=== PATIENT | female | born 1970 | race Caucasian/White ===

== ENCOUNTER 2018-05-05 11:36 | Emergency (ER) | payer OTHER, SELFPAY ==
[2018-05-05 11:52] VITALS: BP 168/69; PULSE 103; RESP 16; TEMP 37; O2SAT 99; BMI 18.6
--- NOTE | 2018-05-05 12:13 | ED.ABDPAIN ---
HPI - Abdominal Pain General Chief Complaint: Abdominal Pain Stated Complaint: states blood clot on hemmoroid Time Seen by Provider: 05/05/18 12:14 Source: patient Mode of arrival: ambulatory Limitations: no limitations History of Present Illness HPI narrative: this 48-year-old female comes in due to thrombosed hemorrhoid. She states that she has a long history of hemorrhoids, usually conservative measures such as steroid cream, fiber, and suppositories are effective. She has had this hemorrhoid for about 10 days and pain started to worsen yesterday. She took a picture with her phone and noticed a dark area. Saw her PCM and was told this was thrombosed. She states that topical nitroglycerin was prescribed but was not available for her to get until next week. She was scheduled an appointment with surgery apparently but not able to get in until Thursday. She states that her PCM told her to come here to have this excised because it needed to be done prior and [place] She states she has not been prescribed pain medicine, tried topical lidocaine but seemed to cause irritation. She has increasing discomfort with trying to sit or get comfortable. She states that this did bleed a little bit yesterday and was clearly coming from the hemorrhoid. She states that for 2 weeks or more she has had gurgling in her stomach and 1-3 soft to watery bowel movements early in the morning. She states the rest of the day this is not an issue in does not seem like her previous colitis. She states this was going on well before the hemorrhoid started but thinks it may be causing irritation. Related Data Home Medications Medication Instructions Recorded Confirmed acetaminophen 650 mg PO PRN PRN #0 04/09/16 cetirizine 10 mg PO QDAYP PRN #0 04/09/16 duloxetine [Cymbalta] 60 mg PO QDAY #0 04/09/16 methylcellulose (laxative) 500 mg PO QDAY #0 04/09/16 [Citrucel] valacyclovir 500 mg PO QDAY #0 04/09/16 Previous Rx's Medication Instructions Recorded hydroxyzine pamoate [Vistaril] 25 mg PO Q4HP PRN #60 cap 04/12/16 oxycodone 5 mg PO Q4HP PRN #90 tab 04/12/16 diazepam 2 mg PO Q3HP PRN #20 04/13/16 nitroglycerin 0.5 inch TRANSDERMAL BID #30 gram 05/05/18 oxycodone-acetaminophen 1 tab PO Q4-6H PRN #12 tab 05/05/18 Allergies Allergy/AdvReac Type Severity Reaction Status Date / Time bupropion [From WELLBUTRIN] Allergy Intermediate TACHYCARDIA, Unverified 09/09/17 11:52 CONFUSION AND 'UNCOMFORTABLE FEELINGS' Review of Systems Review of Systems All systems reviewed & are unremarkable except as noted in HPI and below PFSH Medical History Anxiety and depression (Chronic) Chronic pain (Chronic) Colitis (Chronic) Surgical History S/P cervical spinal fusion (Resolved) Social History Smoking Status: Current every day smoker Exam Narrative Exam Narrative: GENERAL APPEARANCE: Patient sitting comfortably, in no distress. HEENT: PERRL, EOMI, NECK: Supple LUNGS: Clear to auscultation bilaterally. HEART: Rate and rhythm regular, normal S1 and S2, no S3 or S4. ABDOMEN: Soft, nontender, nondistended, bowel sounds present x 4 quadrants, no masses palpable EXTREMITIES: No edema DERMATOLOGIC: No jaundice or exanthem NEUROLOGIC: Alert and oriented with normal speech and coordination RECTAL: on external exam there is a tender hemorrhoid with a central black macule, mildly edematous, approximately 6 mm in size. Surrounding skin is not erythematous. There is no active bleeding. There are several other small tags that are not inflamed Initial Vital Signs Initial Vital Signs: Vital Signs Temperature 98.6 F 05/05/18 11:52 Pulse Rate 103 H 05/05/18 11:52 Respiratory Rate 16 05/05/18 11:52 Blood Pressure 168/69 H 05/05/18 11:52 Pulse Oximetry 99 05/05/18 11:52 Course Orders Ordered: I explained to patient that I could attempt to excise the clot today, however more definitive treatment is excision the hemorrhoid and she already has an appointment with surgery. We are able to get topical nitroglycerin for her locally and she has taken Percocet in the past with good pain relief for her spinal issues. She elects to try conservative management and keep her appointment with surgery in 2 days. On reviewing the photo that she took yesterday, right actually looks smaller and less inflamed today. May have had some partial evacuation with the bleeding that occurred yesterday. Vital Signs - 8 hr 05/05/18 11:52 Temperature 98.6 F Pulse Rate 103 H Respiratory Rate 16 Blood Pressure 168/69 H Pulse Oximetry 99 Discharge Plan Departure Patient Disposition: Home Clinical Impression: External hemorrhoid, thrombosed Discharge Date/Time: 05/05/18 13:17 Instructions: DI for Hemorrhoids Activity Restrictions/Additional Instructions: you can try the nitroglycerin cream prescribed twice daily. Take pain pills as needed. Please be sure to get your bottom into a tub of warm/hot water as many times daily as possible. You can use the prescription oxycodone/acetaminophen as needed since it has helped to in the past, but remember it may make you sleepy and not to drive. The hemorrhoid you showed me has a small clot in it but it looks less inflamed than in the picture you showed me yesterday, and may have been partially evacuated from the bleeding. You can continue any of the other topical medicines you have if the skin is not open (it is not today). Please keep your appointment with the surgeon in 2 days to determine whether to excise this hemorrhoid (we do not do this in the Emergency Department but it is the preferred treatment as far as not having the hemorrhoid come back). Prescriptions: New oxycodone-acetaminophen 5-325 mg tablet 1 tab PO Q4-6H PRN (Reason: acute hemorrhoid pain) Qty: 12 RF: 0 nitroglycerin 2 % ointment 0.5 inch Transdermal BID Qty: 30 RF: 0 No Action acetaminophen 325 MG tablet 650 mg PO PRN PRNQty: 0 RF: 0 valacyclovir 500 MG tablet 500 mg PO QDAY Qty: 0 RF: 0 methylcellulose (laxative) [Citrucel] 500 MG tablet 500 mg PO QDAY Qty: 0 RF: 0 cetirizine 10 MG tablet 10 mg PO QDAYP PRNQty: 0 RF: 0 duloxetine [Cymbalta] 30 MG capsule,delayed release(DR/EC) 60 mg PO QDAY Qty: 0 RF: 0 oxycodone 5 MG tablet 5 mg PO Q4HP PRNQty: 90 RF: 0 hydroxyzine pamoate [Vistaril] 25 MG capsule 25 mg PO Q4HP PRNQty: 60 RF: 1 diazepam 2 MG tablet 2 mg PO Q3HP PRNQty: 20 RF: 0 Referrals: [facility] [Outside]
--- NOTE | 2018-05-05 12:43 | ED.ABDPAIN ---
HPI - Abdominal Pain <Mary Newman PA-C - Last Filed: 05/05/18 21:03> General Chief Complaint: Abdominal Pain Stated Complaint: states blood clot on hemmoroid Time Seen by Provider: 05/05/18 12:14 Source: patient Mode of arrival: ambulatory Limitations: no limitations History of Present Illness HPI narrative: this 48-year-old female with a long history of recurrent hemorrhoids states that she noted recurrent symptoms about 10 days ago. These have always improved with conservative measures such as Sitz baths, preparation H, fiber, suppositories, but yesterday she began to have more pain and noted a blackish purple area when she took a picture with her cell phone. She saw her PCM at the [facility] who told her this was thrombosed and she needed to have it excised or drained, but they were unable to do this at the [facility] and she was not able to be referred to surgery until Thursday. She was advised to come here to have this done today. She is uncomfortable with sitting or pressure on this area. She states that she was given topical lidocaine but seemed to cause irritation and did not help. She states the hemorrhoid was bleeding a little bit last night / yesterday, but not today. She was also given a prescription for topical nitroglycerin, but apparently this had to be special ordered for her so she was not able to start it. She denies any other new symptoms or concerns today other than pain from the hemorrhoid. She states that she has had 2 or more weeks of gurgling in her stomach after meals and will have 1-3 watery to soft bowel movements just in the morning, which she thinks has exacerbated the hemorrhoid as well as sitting for extended periods. She does have a history of colitis but states this is not like her colitis. No acute changes. She states that she has not seen any blood in the stools, just from the hemorrhoids. Related Data Home Medications Medication Instructions Recorded Confirmed acetaminophen 650 mg PO PRN PRN #0 04/09/16 cetirizine 10 mg PO QDAYP PRN #0 04/09/16 duloxetine [Cymbalta] 60 mg PO QDAY #0 04/09/16 methylcellulose (laxative) 500 mg PO QDAY #0 04/09/16 [Citrucel] valacyclovir 500 mg PO QDAY #0 04/09/16 Previous Rx's Medication Instructions Recorded hydroxyzine pamoate [Vistaril] 25 mg PO Q4HP PRN #60 cap 04/12/16 oxycodone 5 mg PO Q4HP PRN #90 tab 04/12/16 diazepam 2 mg PO Q3HP PRN #20 04/13/16 nitroglycerin 0.5 inch TRANSDERMAL BID #30 gram 05/05/18 oxycodone-acetaminophen 1 tab PO Q4-6H PRN #12 tab 05/05/18 Allergies Allergy/AdvReac Type Severity Reaction Status Date / Time bupropion [From WELLBUTRIN] Allergy Intermediate TACHYCARDIA, Unverified 09/09/17 11:52 CONFUSION AND 'UNCOMFORTABLE FEELINGS' Review of Systems <Mary Newman PA-C - Last Filed: 05/05/18 21:03> Review of Systems All systems reviewed & are unremarkable except as noted in HPI and below Exam <Mary Newman PA-C - Last Filed: 05/05/18 21:03> Narrative Exam Narrative: GENERAL APPEARANCE: Patient sitting comfortably, in no distress. HEENT: PERRL, EOMI, no scleral icterus NECK: Supple LUNGS: Clear to auscultation bilaterally. HEART: Rate and rhythm regular, normal S1 and S2, no S3 or S4. ABDOMEN: Soft, nontender, nondistended, bowel sounds present x 4 quadrants, no masses palpable EXTREMITIES: No edema, no calf tenderness DERMATOLOGIC: No jaundice or exanthem NEUROLOGIC: Alert and oriented with normal speech and coordination RECTAL: On external exam there is a left-sided external hemorrhoid about 7 mm in size. There is small black macule centrally. Tender to touch. The overlying tissue is not erythematous and there is no active drainage or bleeding. There are several other small tags as well which are nontender Initial Vital Signs Initial Vital Signs: Vital Signs Temperature 98.6 F 05/05/18 11:52 Pulse Rate 103 H 05/05/18 11:52 Respiratory Rate 16 05/05/18 11:52 Blood Pressure 168/69 H 05/05/18 11:52 Pulse Oximetry 99 05/05/18 11:52 <Vanessa Reed DO - Last Filed: 05/06/18 07:32> Initial Vital Signs Initial Vital Signs: Vital Signs Temperature 98.6 F 05/05/18 11:52 Pulse Rate 103 H 05/05/18 11:52 Respiratory Rate 16 05/05/18 11:52 Blood Pressure 168/69 H 05/05/18 11:52 Pulse Oximetry 99 05/05/18 11:52 Course <Mary Newman PA-C - Last Filed: 05/05/18 21:03> Additional Information: explained to patient that typically we do not incised these in the emergency department, and that more definitive treatment would be to have the hemorrhoid completely excised. I did offer this to her versus topical nitroglycerin, which are local pharmacy does have, along with pain medication since she already has a surgical consult scheduled on Thursday, and she elects the latter. Vital Signs - 8 hr 05/05/18 13:15 Pulse Rate 71 Respiratory Rate 15 Blood Pressure 128/46 L Pulse Oximetry 100 <Vanessa Reed DO - Last Filed: 05/06/18 07:32> Vital Signs - 8 hr 05/05/18 13:15 Pulse Rate 71 Respiratory Rate 15 Blood Pressure 128/46 L Pulse Oximetry 100 Discharge Plan Departure Patient Disposition: Home Clinical Impression: External hemorrhoid, thrombosed Discharge Date/Time: 05/05/18 13:17 Interventions: ED Discharge Assessment Last Done: 05/05/18 13:15 Instructions: DI for Hemorrhoids Activity Restrictions/Additional Instructions: you can try the nitroglycerin cream prescribed twice daily. Take pain pills as needed. Please be sure to get your bottom into a tub of warm/hot water as many times daily as possible. You can use the prescription oxycodone/acetaminophen as needed since it has helped to in the past, but remember it may make you sleepy and not to drive. The hemorrhoid you showed me has a small clot in it but it looks less inflamed than in the picture you showed me yesterday, and may have been partially evacuated from the bleeding. You can continue any of the other topical medicines you have if the skin is not open (it is not today). Please keep your appointment with the surgeon in 2 days to determine whether to excise this hemorrhoid (we do not do this in the Emergency Department but it is the preferred treatment as far as not having the hemorrhoid come back). Prescriptions: New oxycodone-acetaminophen 5-325 mg tablet 1 tab PO Q4-6H PRN (Reason: acute hemorrhoid pain) Qty: 12 RF: 0 nitroglycerin 2 % ointment 0.5 inch Transdermal BID Qty: 30 RF: 0 No Action acetaminophen 325 MG tablet 650 mg PO PRN PRNQty: 0 RF: 0 valacyclovir 500 MG tablet 500 mg PO QDAY Qty: 0 RF: 0 methylcellulose (laxative) [Citrucel] 500 MG tablet 500 mg PO QDAY Qty: 0 RF: 0 cetirizine 10 MG tablet 10 mg PO QDAYP PRNQty: 0 RF: 0 duloxetine [Cymbalta] 30 MG capsule,delayed release(DR/EC) 60 mg PO QDAY Qty: 0 RF: 0 oxycodone 5 MG tablet 5 mg PO Q4HP PRNQty: 90 RF: 0 hydroxyzine pamoate [Vistaril] 25 MG capsule 25 mg PO Q4HP PRNQty: 60 RF: 1 diazepam 2 MG tablet 2 mg PO Q3HP PRNQty: 20 RF: 0 Referrals: [facility] [Outside] <Vanessa Reed, - Last Filed: 05/06/18 07:32> Cosign ED Attending Jyotiature Attestation: I was immediately available in the department for consultation. Documentation has been reviewed. I agree with assessment and plan.
--- NOTE | 2018-05-05 12:49 | ED_ITS ---
HPI - Abdominal Pain <Mary Newman PA-C - Last Filed: 05/05/18 21:03> General Chief Complaint: Abdominal Pain Stated Complaint: states blood clot on hemmoroid Time Seen by Provider: 05/05/18 12:14 Source: patient Mode of arrival: ambulatory Limitations: no limitations History of Present Illness HPI narrative: this 48-year-old female with a long history of recurrent hemorrhoids states that she noted recurrent symptoms about 10 days ago. These have always improved with conservative measures such as Sitz baths, preparation H, fiber, suppositories, but yesterday she began to have more pain and noted a blackish purple area when she took a picture with her cell phone. She saw her PCM at the [facility] who told her this was thrombosed and she needed to have it excised or drained, but they were unable to do this at the [facility] and she was not able to be referred to surgery until Thursday. She was advised to come here to have this done today. She is uncomfortable with sitting or pressure on this area. She states that she was given topical lidocaine but seemed to cause irritation and did not help. She states the hemorrhoid was bleeding a little bit last night / yesterday, but not today. She was also given a prescription for topical nitroglycerin, but apparently this had to be special ordered for her so she was not able to start it. She denies any other new symptoms or concerns today other than pain from the hemorrhoid. She states that she has had 2 or more weeks of gurgling in her stomach after meals and will have 1-3 watery to soft bowel movements just in the morning, which she thinks has exacerbated the hemorrhoid as well as sitting for extended periods. She does have a history of colitis but states this is not like her colitis. No acute changes. She states that she has not seen any blood in the stools, just from the hemorrhoids. Related Data Home Medications Medication Instructions Recorded Confirmed acetaminophen 650 mg PO PRN PRN #0 04/09/16 cetirizine 10 mg PO QDAYP PRN #0 04/09/16 duloxetine [Cymbalta] 60 mg PO QDAY #0 04/09/16 methylcellulose (laxative) 500 mg PO QDAY #0 04/09/16 [Citrucel] valacyclovir 500 mg PO QDAY #0 04/09/16 Previous Rx's Medication Instructions Recorded hydroxyzine pamoate [Vistaril] 25 mg PO Q4HP PRN #60 cap 04/12/16 oxycodone 5 mg PO Q4HP PRN #90 tab 04/12/16 diazepam 2 mg PO Q3HP PRN #20 04/13/16 nitroglycerin 0.5 inch TRANSDERMAL BID #30 gram 05/05/18 oxycodone-acetaminophen 1 tab PO Q4-6H PRN #12 tab 05/05/18 Allergies Allergy/AdvReac Type Severity Reaction Status Date / Time bupropion [From WELLBUTRIN] Allergy Intermediate TACHYCARDIA, Unverified 11:52 CONFUSION AND 'UNCOMFORTABLE FEELINGS' Review of Systems <Mary Newman PA-C - Last Filed: 05/05/18 21:03> Review of Systems All systems reviewed & are unremarkable except as noted in HPI and below Exam <Mary Newman PA-C - Last Filed: 05/05/18 21:03> Narrative Exam Narrative: GENERAL APPEARANCE: Patient sitting comfortably, in no distress. HEENT: PERRL, EOMI, no scleral icterus NECK: Supple LUNGS: Clear to auscultation bilaterally. HEART: Rate and rhythm regular, normal S1 and S2, no S3 or S4. ABDOMEN: Soft, nontender, nondistended, bowel sounds present x 4 quadrants, no masses palpable EXTREMITIES: No edema, no calf tenderness DERMATOLOGIC: No jaundice or exanthem NEUROLOGIC: Alert and oriented with normal speech and coordination RECTAL: On external exam there is a left-sided external hemorrhoid about 7 mm in size. There is small black macule centrally. Tender to touch. The overlying tissue is not erythematous and there is no active drainage or bleeding. There are several other small tags as well which are nontender Initial Vital Signs Initial Vital Signs: Vital Signs Temperature 98.6 F 05/05/18 11:52 Pulse Rate 103 H 05/05/18 11:52 Respiratory Rate 16 05/05/18 11:52 Blood Pressure 168/69 H 05/05/18 11:52 Pulse Oximetry 99 05/05/18 11:52 <Vanessa Reed DO - Last Filed: 05/06/18 07:32> Initial Vital Signs Initial Vital Signs: Vital Signs Temperature 98.6 F 05/05/18 11:52 Pulse Rate 103 H 05/05/18 11:52 Respiratory Rate 16 05/05/18 11:52 Blood Pressure 168/69 H 05/05/18 11:52 Pulse Oximetry 99 05/05/18 11:52 Course <Mary Newman PA-C - Last Filed: 05/05/18 21:03> Additional Information: explained to patient that typically we do not incised these in the emergency department, and that more definitive treatment would be to have the hemorrhoid completely excised. I did offer this to her versus topical nitroglycerin, which are local pharmacy does have, along with pain medication since she already has a surgical consult scheduled on Thursday, and she elects the latter. Vital Signs - 8 hr 05/05/18 13:15 Pulse Rate 71 Respiratory Rate 15 Blood Pressure 128/46 L Pulse Oximetry 100 <Vanessa Reed DO - Last Filed: 05/06/18 07:32> Vital Signs - 8 hr 05/05/18 13:15 Pulse Rate 71 Respiratory Rate 15 Blood Pressure 128/46 L Pulse Oximetry 100 Discharge Plan Departure Patient Disposition: Home Clinical Impression: External hemorrhoid, thrombosed Discharge Date/Time: 05/05/18 13:17 Interventions: ED Discharge Assessment Last Done: 05/05/18 13:15 Instructions: DI for Hemorrhoids Activity Restrictions/Additional Instructions: you can try the nitroglycerin cream prescribed twice daily. Take pain pills as needed. Please be sure to get your bottom into a tub of warm/hot water as many times daily as possible. You can use the prescription oxycodone/ acetaminophen as needed since it has helped to in the past, but remember it may make you sleepy and not to drive. The hemorrhoid you showed me has a small clot in it but it looks less inflamed than in the picture you showed me yesterday, and may have been partially evacuated from the bleeding. You can continue any of the other topical medicines you have if the skin is not open ( it is not today). Please keep your appointment with the surgeon in 2 days to determine whether to excise this hemorrhoid (we do not do this in the Emergency Department but it is the preferred treatment as far as not having the hemorrhoid come back). Prescriptions: New oxycodone-acetaminophen 5-325 mg tablet 1 tab PO Q4-6H PRN (Reason: acute hemorrhoid pain) Qty: 12 RF: 0 nitroglycerin 2 % ointment 0.5 inch Transdermal BID Qty: 30 RF: 0 No Action acetaminophen 325 MG tablet 650 mg PO PRN PRNQty: 0 RF: 0 valacyclovir 500 MG tablet 500 mg PO QDAY Qty: 0 RF: 0 methylcellulose (laxative) [Citrucel] 500 MG tablet 500 mg PO QDAY Qty: 0 RF: 0 cetirizine 10 MG tablet 10 mg PO QDAYP PRNQty: 0 RF: 0 duloxetine [Cymbalta] 30 MG capsule,delayed release(DR/EC) 60 mg PO QDAY Qty: 0 RF: 0 oxycodone 5 MG tablet 5 mg PO Q4HP PRNQty: 90 RF: 0 hydroxyzine pamoate [Vistaril] 25 MG capsule 25 mg PO Q4HP PRNQty: 60 RF: 1 diazepam 2 MG tablet 2 mg PO Q3HP PRNQty: 20 RF: 0 Referrals: [facility] [Outside] <Vanessa Reed, - Last Filed: 05/06/18 07:32> Cosign ED Attending Jyotiature Attestation: I was immediately available in the department for consultation. Documentation has been reviewed. I agree with assessment and plan.
[2018-05-05 13:15] VITALS: BP 128/46; PULSE 71; RESP 15; O2SAT 100
== END 2018-05-05 13:17 | disposition home or self-care (01) ==
PROVIDERS: Emergency Provider Internal Medicine
DX: K64.5 Perianal venous thrombosis (principal)
CPT/HCPCS: 99282

== ENCOUNTER 2018-05-22 21:23 | Emergency (ER) | payer OTHER, SELFPAY ==
[2018-05-22 21:40] VITALS: BP 117/67; PULSE 76; RESP 18; TEMP 36.6; O2SAT 99; BMI 19.3
--- NOTE | 2018-05-22 22:15 | DI.CT.S_ITS ---
PROCEDURE: CT CERVICAL SPINE WO CON INDICATIONS: etoh head lac TECHNIQUE: Noncontrast 3 mm thick sections acquired from the skull base to the T4 level. Sagittal and coronal reformats were then constructed. For radiation dose reduction, the following was used: automated exposure control, adjustment of mA and/or kV according to patient size. COMPARISON: [facility], , C-SPINE WITHOUT CONTRAST, 03/04/2016, 7:09. [facility], CR, XR CERVICAL SPINE 2 OR 3 VIEWS, 05/13/2017, 9:54. [facility], CR, SPINE CERVICAL 2 OR 3VW, 03/26/2016, 11:24. FINDINGS: Image quality: Excellent. Bones: No fractures or dislocations. Discectomy and anterior fusion at C4-C7. Visualized superior ribs are intact. Soft tissues: Prevertebral soft tissues are normal in thickness. No paravertebral hematomas. No apical pneumothoraces. IMPRESSION: No fractures. Note is made of post surgical changes. No significant discrepancy with the showroom executive director radiology preliminary report. Dictated by: Mechelle Ulloa M.D. on 05/23/2018 at 7:28 Approved by: Mechelle Ulloa M.D. on 05/23/2018 at 7:30
--- NOTE | 2018-05-22 22:15 | DI.CT.S_ITS ---
PROCEDURE: CT HEAD/BRAIN WO CON INDICATIONS: etoh, head laceration left TECHNIQUE: Noncontrast 4.5 mm thick angled axial sections acquired from the foramen magnum to the vertex, with coronal and sagittal reformats. For radiation dose reduction, the following was used: automated exposure control, adjustment of mA and/or kV according to patient size. COMPARISON: None. FINDINGS: Image quality: Excellent. CSF spaces: Basal cisterns are patent. No extra-axial fluid collections. Ventricles are normal in size and shape. Brain: No midline shift. No intracranial masses or hemorrhage. Toscano-white matter interface is normal. Skull and face: Calvarium and visualized facial bones are intact, without suspicious lesions. Sinuses: Visualized sinuses and mastoids are clear. IMPRESSION: 1. No acute intracranial abnormalities. No significant discrepancy with the sales service representative radiology preliminary report. Dictated by: Mechelle Ulloa M.D. on 05/23/2018 at 7:27 Approved by: Mechelle Ulloa M.D. on 05/23/2018 at 7:28
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
--- NOTE | 2018-05-22 23:35 | PC.NURSE ---
Dr. Reed at bedside to suture.
[2018-05-22 23:50] VITALS: BP 132/76; PULSE 82; RESP 18; O2SAT 96
== END 2018-05-22 23:55 | disposition home or self-care (01) ==
PROVIDERS: Emergency Provider Emergency Medicine
DX: S01.81XA Laceration without foreign body of other part of head, initial encounter (principal); W26.9XXA Contact with unspecified sharp object(s), initial encounter; Y93.H2 Activity, gardening and landscaping
CPT/HCPCS: 12011; 70450; 72125; 99283; 99284

== ENCOUNTER → 2018-06-24 12:57 | Outpatient (CLI) | payer OTHER, SELFPAY ==
--- NOTE | 2018-06-24 | DI.MRI.S_ITS ---
PROCEDURE: MR LUMBAR SPINE WO CON INDICATIONS: PARESTHESIAS/NUMBNESS TECHNIQUE: Noncontrast sagittal T1 spin echo and T2 fast echo, sagittal STIR, axial T1 and T2 fast spin echo through the lumbar spine. In cases with scoliosis, additional coronal T2 fast spin echo may be performed. COMPARISON: [facility], , L-SPINE WITHOUT CONTRAST, 01/02/2016, 19:34. FINDINGS: Image quality: Excellent. Alignment and Curvature: There is normal bony alignment. Bone Marrow: Marrow is of normal overall signal. No acute vertebral body compression fractures. Spinal Cord: Conus medullaris terminates at the L1 level. Visualized cord demonstrates normal signal and size. Paraspinous Soft Tissues: No paravertebral masses. L1-L2: Normal appearance. L2-L3: Mild degenerative disc disease with mild disc height reduction and desiccation. No definite spinal or foraminal stenosis despite a slight posterior transverse disc bulge. L3-L4: A slight degree of degenerative disc height reduction and desiccation is present without spinal or foraminal stenosis. L4-L5: Slight degenerative disc height reduction and desiccation without spinal or foraminal stenosis on the right. There is a mild degree of foraminal stenosis on the left associated with asymmetric mild left facet osteoarthritis but no definite nerve root impingement is associated. L5-S1: Normal appearance. IMPRESSION: No disc bulge or herniation impinging on nerve roots is found. There is only a mild degree of degenerative disc height reduction and disc desiccation and a minimal degree of foraminal stenosis on the left at L4-5 associated with slightly asymmetric facet osteoarthritis are on the left than the right at that level. Dictated by: Quinten Hood M.D. on 06/24/2018 at 17:24 Approved by: Quinten Hood M.D. on 06/24/2018 at 17:34
== END ==
PROVIDERS: Visit Provider Psychiatry & Neurology Neurology
DX: R20.2 Paresthesia of skin (principal); M47.816 Spondylosis without myelopathy or radiculopathy, lumbar region
CPT/HCPCS: 72148

== ENCOUNTER → 2019-04-14 10:43 | Outpatient (CLI) | payer OTHER, SELFPAY | PROVIDERS: PCP Family Medicine; Visit Provider Nurse Practitioner Family | DX: R30.0 Dysuria (principal) | CPT/HCPCS: 87077; 87086; 87186 ==

== ENCOUNTER → 2019-04-26 10:25 | Outpatient (CLI) | payer OTHER, SELFPAY ==
--- NOTE | 2019-04-26 10:27 | DI.RAD.S_ITS ---
PROCEDURE: XR THORACIC SPINE 3V INDICATIONS: mid back pain TECHNIQUE: 3 views of the thoracic spine were acquired. COMPARISON: None. FINDINGS: Bones: Incidentally noted cervical spine fixation hardware. Multilevel degenerative endplate sclerosis and spurring. Diffuse facet arthropathy. Soft tissues: No paravertebral stripe thickening. IMPRESSION: Diffuse discogenic changes. No definite fracture although suboptimal evaluation due to spondylosis. If the patient's pain or other symptoms persist, consider further evaluation with MRI Dictated by: Pierce Najera M.D. on 04/26/2019 at 14:56 Approved by: Pierce Najera M.D. on 04/26/2019 at 14:58
== END ==
PROVIDERS: Family Provider Family Medicine; PCP Family Medicine; Visit Provider Nurse Practitioner Family
DX: M54.6 Pain in thoracic spine (principal); M47.814 Spondylosis without myelopathy or radiculopathy, thoracic region
CPT/HCPCS: 72072

== ENCOUNTER 2019-05-31 10:23 | Outpatient (CLI) | payer OTHER, SELFPAY ==
[2019-05-31] VITALS (9 sets, daily range): BP systolic 128–159; BP diastolic 69–89; PULSE 73–128; RESP 16–18; TEMP 36.6; O2SAT 98–100
--- NOTE | 2019-05-31 10:24 | DI.RAD.S_ITS ---
PROCEDURE: PAIN C/T INTERLAMINAR INJECT INDICATIONS: INTERVERTEBRAL DISC DISPLACEMENT FINDINGS: Fluoroscopic spot filming was performed to verify placement of spinal needles at the T4-5 level(s), as labeled on the films. Secondary to limited fluoroscopic images, exact placement cannot be confirmed by images provided, only by annotation. Appropriate location(s) of the needle tip(s) was confirmed by injection of iodinated contrast. IMPRESSION: Needle placement as above. Recommend correlation to real-time report. Dictated by: Madiha Moncada M.D. on 05/31/2019 at 17:02 Approved by: Madiha Moncada M.D. on 05/31/2019 at 17:04
[2019-05-31] MEDS: MIDAZOLAM 5 MG/5 ML VIAL IV (11:27)
[2019-05-31] MEDS: fentaNYL 100 MCG/2 ML INJ 50 MCG IV (11:27)
[2019-05-31] MEDS: IOPAMIDOL 15 ML VIAL 3 ML INJ (11:34)
[2019-05-31] MEDS: DEXAMETHASONE 10 MG/ML VIAL 20 MG INJ (11:34)
[2019-05-31] MEDS: LIDOCAINE 1% 20 ML 5 ML INJ (11:34)
--- NOTE | 2019-05-31 11:38 | PC.NURSE ---
ASSISTING PT OFF TABLE AND TRANSPORTING TO POST PROC AREA IN POST PROC AREA IN STABLE CONDITION. PASSING RN CARE OF PT OFF TO NEIDA Talbert RN.
--- NOTE | 2019-05-31 11:46 | PM.PROC.1 ---
Procedures Date/Time Date of procedure: 05/31/19 Time of procedure: 11:46 General Procedure description: Preop diagnosis: Thoracic stenosis with HNP Postprocedure diagnosis: Thoracic stenosis with HNP Physician: Shamir Parra D.O. Indications: Mayi is referred by Dr. Cadena for treatment of thoracic DDD/DJD with radiculopathy Description of procedure: Fluoroscopic guided, contrast controlled T4/5 translaminar epidural steroid injection with conscious sedation. Following review of allergy review potential side effects and complications, including, but not necessarily limited to, infection, allergic reaction, local tissue breakdown, temporary as well as permanent nerve injury, stroke, paralysis and possible , the patient indicated that they understood and agreed to proceed. An informed consent document was signed by the patient, witnessed by the nurse, and placed in the patient's chart. Additionally other treatment options including modalities, medications and physical therapy were reviewed with the patient. After review of previous anaesthesic history and IV conscious sedation the patient was deemed safe to proceed with todays procedure with IV conscious sedation as ASA class II designation. Safety time-out was performed to confirm patient ID, procedure to be performed and site of procedure. IV sedation was accomplished with a combination of 3mg of Versed and 50mcg of Fentanyl administered by the RN after DO order, titrated to patient comfort during the course of the procedure while the patient remained responsive to all verbal commands In the prone position, following sterile prep and drape of the thoracic region the T4/5 translaminar space was identified fluoroscopically. The skin was anesthetized via 25 gauge 20 mm sheath with 1% lidocaine solution. At this point a 20 gauge epidural needle was atraumatically introduced and advanced under fluoroscopic guidance into the region of the T4/5 translaminar space depth was confirmed on lateral view. Radiographic data, including multiple fluoroscopic views of the thoracic spine, reveals spinal needle at the T4/5 translaminar space. Lateral views then showed the placement of the needle in the epidural space. Subsequent view show contrast material flowing superiorly and inferiorly in the epidural space. No vascular or intrathecal uptake is observed. At this point using loss of resistance technique with saline and the epidural space was entered. This was confirmed followed negative aspiration and injection of approximately 1.5 cc of Isovue 200 showed excellent epidural flow without vascular or intrathecal uptake. At this point, 1 cc of 1% lidocaine solution was admitted as a test dose and the patient was observed for an appropriate period of time without signs or symptoms of complications, including abdominal pain, shortness of breath, bilateral upper and lower extremity weakness, nausea and vomiting, prior to steroid injection. Subsequently, 2cc or 20mg of dexamethasone was then injected without incident. The patient tolerated the procedure well without signs of complications and subsequently was transferred to the recovery room for further monitoring. The patient was then transferred to the recovery area with their observed for an appropriate time after the injection. Patient reported a VAS score of 7 prior to the procedure and postprocedure VAS of 2. Total fluoroscopy time: 56.3 sec Total conscious sedation time: 24 min Shamir Parra D.O. Complications: none
--- NOTE | 2019-05-31 12:13 | PC.NURSE ---
Post procedure note: Patient arrived at 1148. VSS on arrival at 1149. Handoff report received from Khari Logan RN. Patient awake and tearful. Pain level 1/10. Patient relieved that pain is almost gone. Spouse at chairside for support. Discharge instructions reviewed with good understanding. Discharged to home, w/c to car with spouse at 1205.
== END 2019-05-31 12:10 | disposition home or self-care (01) ==
LOC: RAD 10:23
PROVIDERS: Family Provider Family Medicine; PCP Family Medicine; Visit Provider Physical Medicine & Rehabilitation
DX: M48.04 Spinal stenosis, thoracic region (principal); M51.14 Intervertebral disc disorders with radiculopathy, thoracic region; M47.24 Other spondylosis with radiculopathy, thoracic region
CPT/HCPCS: 62321; 99152; J1100; J2250; J3010

== ENCOUNTER 2019-07-26 07:35 | Outpatient (CLI) | payer OTHER, SELFPAY ==
[2019-07-26] VITALS (8 sets, daily range): BP systolic 115–162; BP diastolic 68–107; PULSE 73–79; RESP 16; TEMP 36.5; O2SAT 98–100
--- NOTE | 2019-07-26 07:36 | DI.RAD.S_ITS ---
PROCEDURE: PAIN C/T INTERLAMINAR INJECT INDICATIONS: SPINAL STENOSIS FINDINGS: Fluoroscopic spot filming was performed to verify placement of spinal needles at the midline T4-T5 interlaminar level, as labeled on the films. Appropriate location(s) of the needle tip(s) was confirmed by injection of iodinated contrast. IMPRESSION: Successful needle tip localization for T4-T5 region interlaminar injection of epidural steroid. Dictated by: Quinten Hood M.D. on 07/26/2019 at 11:19 Approved by: Quinten Hood M.D. on 07/26/2019 at 11:19
[2019-07-26] MEDS: MIDAZOLAM 5 MG/5 ML VIAL IV (09:06)
[2019-07-26] MEDS: fentaNYL 100 MCG/2 ML INJ 50 MCG IV (09:08)
[2019-07-26] MEDS: BUPIVACAINE 0.25% (PF) VIAL 2 ML INJ (09:10)
[2019-07-26] MEDS: IOPAMIDOL 15 ML VIAL 3 ML INJ (09:11)
[2019-07-26] MEDS: DEXAMETHASONE 10 MG/ML VIAL 20 MG INJ (09:12)
--- NOTE | 2019-07-26 09:15 | PC.NURSE ---
ASSISTING PT OFF TABLE AND TRANSPORTING TO POST PROC AREA IN STABLE CONDITION. PASSING RN CARE OF PT OFF TO RICH Goncalves RN.
--- NOTE | 2019-07-26 09:17 | PM.PROC.1 ---
Procedures Date/Time Date of procedure: 07/26/19 Time of procedure: 09:17 General Procedure description: Preop diagnosis: Thoracic stenosis with HNP Postprocedure diagnosis: Thoracic stenosis with HNP Physician: Shamir Parra D.O. Indications: Mayi is referred by Dr. Cadena for treatment of thoracic DDD/DJD with radiculopathy Description of procedure: Fluoroscopic guided, contrast controlled T4/5 translaminar epidural steroid injection with conscious sedation. Following review of allergy review potential side effects and complications, including, but not necessarily limited to, infection, allergic reaction, local tissue breakdown, temporary as well as permanent nerve injury, stroke, paralysis and possible , the patient indicated that they understood and agreed to proceed. An informed consent document was signed by the patient, witnessed by the nurse, and placed in the patient's chart. Additionally other treatment options including modalities, medications and physical therapy were reviewed with the patient. After review of previous anaesthesic history and IV conscious sedation the patient was deemed safe to proceed with todays procedure with IV conscious sedation as ASA class II designation. Safety time-out was performed to confirm patient ID, procedure to be performed and site of procedure. IV sedation was accomplished with a combination of 4mg of Versed and 50mcg of Fentanyl administered by the RN after DO order, titrated to patient comfort during the course of the procedure while the patient remained responsive to all verbal commands In the prone position, following sterile prep and drape of the thoracic region the T4/5 translaminar space was identified fluoroscopically. The skin was anesthetized via 25 gauge 20 mm sheath with 1% lidocaine solution. At this point a 20 gauge epidural needle was atraumatically introduced and advanced under fluoroscopic guidance into the region of the T4/5 translaminar space depth was confirmed on lateral view. Radiographic data, including multiple fluoroscopic views of the thoracic spine, reveals spinal needle at the T4/5 translaminar space. Lateral views then showed the placement of the needle in the epidural space. Subsequent view show contrast material flowing superiorly and inferiorly in the epidural space. No vascular or intrathecal uptake is observed. At this point using loss of resistance technique with saline and the epidural space was entered. This was confirmed followed negative aspiration and injection of approximately 1.5 cc of Isovue 200 showed excellent epidural flow without vascular or intrathecal uptake. At this point, 1 cc of 0.25% marcaine solution was admitted as a test dose and the patient was observed for an appropriate period of time without signs or symptoms of complications, including abdominal pain, shortness of breath, bilateral upper and lower extremity weakness, nausea and vomiting, prior to steroid injection. Subsequently, 3cc or 30mg of dexamethasone was then injected without incident. The patient tolerated the procedure well without signs of complications and subsequently was transferred to the recovery room for further monitoring. The patient was then transferred to the recovery area with their observed for an appropriate time after the injection. Patient reported a VAS score of 7 prior to the procedure and postprocedure VAS of 2. Total fluoroscopy time: 11 sec Total conscious sedation time: 24 min Shamir Parra D.O. Complications: none
--- NOTE | 2019-07-26 09:49 | PC.NURSE ---
0925: Received patient post procedure via WC with Geni MACIAS. Awake and alert, up out of WC, SBA to chair, VSS upon arrival.
== END 2019-07-26 09:50 | disposition home or self-care (01) ==
LOC: RAD 07:35
PROVIDERS: Family Provider Family Medicine; PCP Family Medicine; Referring Provider Physical Medicine & Rehabilitation; Visit Provider Physical Medicine & Rehabilitation
DX: M48.04 Spinal stenosis, thoracic region (principal); M51.04 Intervertebral disc disorders with myelopathy, thoracic region; M51.14 Intervertebral disc disorders with radiculopathy, thoracic region; M47.24 Other spondylosis with radiculopathy, thoracic region
CPT/HCPCS: 62321; 99152; J1100; J2250; J3010

== ENCOUNTER → 2019-10-13 16:05 | Outpatient (CLI) | payer OTHER, SELFPAY ==
--- NOTE | 2019-10-13 16:07 | DI.MRI.S_ITS ---
PROCEDURE: MR THORACIC SPINE WO CON INDICATIONS: Thoracic Radiculopathy TECHNIQUE: Noncontrast sagittal T1 spine echo and T2 fast spin echo, sagittal STIR, axial T1 and T2 fast spin echo through the thoracic spine. COMPARISON: None. FINDINGS: Image quality: Excellent. Alignment and Curvature: There is normal bony alignment. Bone Marrow: Marrow is of normal overall signal. No acute vertebral body compression fractures. Spinal Cord: Visualized spinal cord is normal in size and signal. Paraspinous Soft Tissues: No paravertebral masses. Miscellaneous: There is a right foraminal disc bulge and right facet hypertrophy at T2-T3 which results in moderate right foraminal narrowing and flattening deformity of the right T2 nerve root in the foramen. There is right foraminal disc bulge and right facet hypertrophy at T3-T4 which results in mild right foraminal narrowing. Focal mild central posterior disc protrusion at T4-T5 abutting the cord without canal stenosis. There is mild to moderate left foraminal narrowing at this level. IMPRESSION: 1 At T2-T3, there is moderate right foraminal narrowing and flattening deformity on the right T2 nerve root in the foramen. 2. There is a mild central posterior disc protrusion at T4-T5 which abuts the cord or mass. Dictated by: Rafael Butt M.D. on 10/13/2019 at 21:25 Approved by: Rafael Butt M.D. on 10/13/2019 at 21:31
== END ==
PROVIDERS: Family Provider Family Medicine; PCP Family Medicine; Referring Provider Family Medicine; Visit Provider Physical Medicine & Rehabilitation
DX: M51.04 Intervertebral disc disorders with myelopathy, thoracic region (principal); M51.14 Intervertebral disc disorders with radiculopathy, thoracic region; M48.04 Spinal stenosis, thoracic region
CPT/HCPCS: 72146

== ENCOUNTER → 2020-07-10 09:19 | Outpatient (CLI) | payer OTHER, SELFPAY ==
--- NOTE | 2020-07-10 | DI.MG.S_ITS ---
BILATERAL DIGITAL DIAGNOSTIC MAMMOGRAM 3D/2D: 07/10/2020 CLINICAL: Nipple lesion. Comparison is made to exams dated: 03/06/2014 mammogram, 06/24/2011 mammogram, and 03/08/2008 mammogram - [facility]. The tissue of both breasts is extremely dense, which lowers the sensitivity of mammography. There is a possible benign calcification in the right breast middle depth lateral region seen on the craniocaudal view only. This is not seen in additional views. No abnormality of the right nipple is seen. No other significant masses, calcifications, or other findings are seen in either breast. IMPRESSION: INCOMPLETE: NEEDS ADDITIONAL IMAGING EVALUATION No mammographic evidence of malignancy. A targeted ultrasound of the right nipple for reported lesion is recommended and will immediately follow. This exam was interpreted at Station ID: [id number]. NOTE: For mammograms, a report in lay terms will be sent to the patient. Approximately 15% of breast malignancies will not be visualized mammographically. In the management of a palpable breast mass, a negative mammogram must not discourage biopsy of a clinically suspicious lesion. Electronically Signed By: Hayden Ochoa M.D. slc/:07/10/2020 11:22:58 ACR BI-RADS Category 0: Incomplete [id number]
--- NOTE | 2020-07-10 | DI.US.S_ITS ---
LIMITED ULTRASOUND OF RIGHT BREAST: 07/10/2020 CLINICAL: Nipple lesion. Comparison is made to exams dated: 07/10/2020 mammogram - [facility], 03/06/2014 mammogram, 06/24/2011 mammogram, and 03/08/2008 mammogram - [facility]. Color flow and real-time ultrasound of the right breast retroareolar were performed. Toscano scale images of the real-time examination were reviewed. No significant abnormalities were seen sonographically in the right nipple at the site of clinical concern. IMPRESSION: NEGATIVE There is no sonographic evidence of malignancy at the right nipple. Patient denies nipple discharge. [facility] Mold does not visualize a skin lesion. Exam findings were conveyed to the patient. Patient is advised to monitor for significant change. Clinical follow-up is recommended. A 1 year screening mammogram is recommended. This exam was interpreted at Station ID: [id number]. Electronically Signed By: Hayden Ochoa M.D. slc/:07/10/2020 11:26:39 letter sent: Clinical Evaluation Ultrasound BI-RADS: 1 Negative
== END ==
PROVIDERS: Family Provider Family Medicine; PCP Family Medicine; Referring Provider Family Medicine; Visit Provider Family Medicine
DX: R92.2 Inconclusive mammogram (principal); N63.41 Unspecified lump in right breast, subareolar
CPT/HCPCS: 76642; 77066; G0279

== ENCOUNTER → 2023-07-13 09:31 | Outpatient (CLI) | payer OTHER, SELFPAY ==
--- NOTE | 2023-07-13 | DI.US.S_ITS ---
PROCEDURE: US THYROID INDICATIONS: NECK FULLNESS TECHNIQUE: Real-time scanning was performed of the thyroid gland, with image documentation. COMPARISON: None. FINDINGS: Right: Thyroid lobe measures 5.3 x 2.2 x 1.9 cm, and is homogeneous in echotexture. Left: Thyroid lobe measures 4.8 x 2.5 x 1.1 cm, and is homogenous in echotexture. Isthmus: 0.3 cm thick. Nodule number: 1 Location: Right mid Size: 1.5 x 1.4 x 1.2 cm. Composition: Solid Echogenicity: Hypoechoic/isoechoic Shape: wider than tall. Margins: Smooth Echogenic foci: None Total points: 4 ACR TI-RADS category: 4 IMPRESSION: Nodule in the right mid thyroid lobe which is TIRADS-4. Based on size, recommend FNA. ACR TI-RADS definitions and recommendations: TI-RADS 1 (benign): 0 points. FNA not needed. TI-RADS 2 (not suspicious): 2 points. FNA not needed. TI-RADS 3 (mildly suspicious): 3 points. * FNA if 2.5 cm or larger, follow up if 1.5 cm or larger (at 1, 3, and 5 years). TI-RADS 4 (moderately suspicious): 4-6 points. * FNA if 1.5 cm or larger, follow up if 1 cm or larger (at 1, 2, 3, and 5 years). TI-RADS 5 (highly suspicious): 7 points or more. * FNA if 1 cm or larger, follow up if 0.5 cm or larger (every year for 5 years). Dictated by: Hayes Farnsworth M.D. on 07/13/2023 at 15:13 Approved by: Hayes Farnsworth M.D. on 07/13/2023 at 15:15
--- NOTE | 2023-07-13 | DI.MG.S_ITS ---
BILATERAL DIGITAL DIAGNOSTIC MAMMOGRAM 3D/2D: 07/13/2023 CLINICAL: Breast pain. Comparison is made to exams dated: 07/10/2020 mammogram - [facility], 03/06/2014 mammogram, and 06/24/2011 mammogram - [facility]. Both breasts are extremely dense, which lowers the sensitivity of mammography (category d />75% glandular tissue). No significant masses, calcifications, or other findings are seen in either breast. Possible tiny amount of non-bloody discharge was noted during today's compression mammography exam. IMPRESSION: INCOMPLETE: NEEDS ADDITIONAL IMAGING EVALUATION There is no abnormality seen in the left breast to correspond with the diffuse pain, however, clinical correlation and clinical followup are recommended. Possible tiny amount of non-bloody discharge was noted during today's compression mammography exam. There is no abnormality seen in the left breast to correspond with the non-bloody discharge from the nipple, however, ultrasound is recommended. Based on Tyrer-Cuzick model (a risk assessment model), the patient's lifetime risk is 28.4% and her 10 year risk is 7.6%. If a patient has an elevated risk, a more comprehensive evaluation should be considered and/or a referral to a genetic counselor. The [place] [employer], [employer], and NCCN Guidelines advise the consideration of Breast MRI as an adjunct to screening mammography in patients whose Lifetime risk to develop breast cancer is 20% or higher. This exam was interpreted at Station ID: [id number]. NOTE: For mammograms, a report in lay terms will be sent to the patient. Approximately 15% of breast malignancies will not be visualized mammographically. In the management of a palpable breast mass, a negative mammogram must not discourage biopsy of a clinically suspicious lesion. Electronically Signed By: Roberto Mosley M.D. lc/:07/13/2023 11:14:45 ACR BI-RADS Category 0: Incomplete [id number]
--- NOTE | 2023-07-13 | DI.CT.S_ITS ---
PROCEDURE: CT LUNG LOW DOSE SCREENING INDICATIONS: LUNG CANCER SCREENING TECHNIQUE: Noncontrast 2.0-2.5 mm thick sections acquired from the pulmonary apices to the posterior costophrenic angles. 7 mm thick axial MIP, and 5 mm coronal and sagittal reformats were then acquired. For radiation dose reduction, the following was used: automated exposure control, adjustment of mA and/or kV according to patient size. COMPARISON: None. FINDINGS: Image quality: Diagnostic. Lower Neck: No enlarged lymph nodes. Thyroid: No thyroid nodules which require sonographic follow up, per consensus guidelines. Axillae: No enlarged lymph nodes. Chest Wall: Unremarkable. Bones: Unremarkable. Lungs and Pleura: Emphysematous lung changes. No pneumothorax or pleural effusions. No consolidation or suspicious nodules. Heart: Heart size is normal. No pericardial effusion. Thoracic Vessels: The aorta and pulmonary arteries demonstrate normal size. Mediastinum and [place]: No enlarged lymph nodes. Esophagus: No wall thickening. No hiatal hernia. Upper Abdomen: Visualized upper abdomen solid organs and bowel loops appear normal. IMPRESSION: No suspicious pulmonary nodules. LUNG-RADS 1; continued annual screening, if eligible. Clinically Significant Non-pulmonary Findings: None. Dictated by: Daquan Iraheta M.D. on 07/13/2023 at 15:20 Approved by: Daquan Iraheta M.D. on 07/13/2023 at 15:32
--- NOTE | 2023-07-13 | DI.US.S_ITS ---
LIMITED ULTRASOUND OF LEFT BREAST AND AXILLA: 07/13/2023 CLINICAL: Diffuse left breast pain. No prior exams were available for comparison. Color flow and real-time ultrasound of the left breast 1 o'clock, retroareolar, and axilla regions were performed. Toscano scale images of the real-time examination were reviewed. There is a 0.9 cm x 0.9 cm x 0.4 cm clusterd micro cysts in the left breast at 1 o'clock middle depth 4 cm from the nipple. This correlates as an incidental finding. There also is benign duct ectasia in the left breast central to the nipple in the retroareolar region. This correlates with the nipple discharge. IMPRESSION: PROBABLY BENIGN The 0.9 cm x 0.9 cm x 0.4 cm possible clustered microcysts in the left breast at 1 o'clock middle depth is probably benign. 6 month followup US recommended. This is likely an incidental finding. The duct ectasia in the left breast central to the nipple in the retroareolar region is benign, likely corresponding to expressed non-bloody discharge during today's mammogram. There is no abnormality seen in the left breast or in the left axilla to correspond with the diffuse area of clinical concern and pain, however, clinical correlation and clinical followup are recommended. Reimaging sooner than 6 months could be obtained if new or worsening symptoms develop. This exam was interpreted at Station ID: [id number]. Electronically Signed By: Roberto Mosley M.D. lc/:07/13/2023 11:22:57 letter sent: Followup Recommended Ultrasound BI-RADS: 3 Probably benign
== END ==
LOC: MAMMO 09:32
PROVIDERS: Family Provider Family Medicine; PCP Family Medicine; Referring Provider Physician Assistant; Visit Provider Physician Assistant
DX: R92.2 Inconclusive mammogram (principal); N60.42 Mammary duct ectasia of left breast; R92.343 Mammographic extreme density, bilateral breasts; N64.4 Mastodynia; E04.1 Nontoxic single thyroid nodule; R22.1 Localized swelling, mass and lump, neck; Z12.2 Encounter for screening for malignant neoplasm of respiratory organs; Z87.891 Personal history of nicotine dependence
CPT/HCPCS: 71271; 76536; 76642; 77066; G0279

== ENCOUNTER → 2023-08-10 08:01 | Outpatient (CLI) | payer OTHER, SELFPAY ==
--- NOTE | 2023-08-10 | PATH_ITS ---
Note [facility] Accession Number: [id number] TESTS RESULT FLAG UNITS REF RANGE LAB Clinician Provided Cytology Information No. of containers..00 Previously Prepared Cytology Slide 35 Unknown Storage/container code(s) Source: RIGHT THYROID NODULE MID #1 DIAGNOSIS: 01 RIGHT THYROID NODULE MID #1, FINE NEEDLE ASPIRATION. NEGATIVE FOR MALIGNANT CELLS. ADEQUATE FOR EVALUATION. FOLLICULAR GROUPS ARE PRESENT. FAVOR A BENIGN FOLLICULAR (GOITEROUS) NODULE ([place]ESDA CATEGORY II), SEE COMMENT. COMMENT: MICROSCOPIC EXAMINATION REVEALS A MILDLY CELLULAR ASPIRATE, COMPOSED OF COLLOID, MACROPHAGES AND FEW FOLLICULAR GROUPS WITH FOCAL HURTHLE CELL CHANGES, WITHOUT SIGNIFICANT CYTOLOGIC OR ARCHITECTURAL ATYPIA. THESE FINDINGS FAVOR A BENIGN FOLLICULAR (GOITEROUS) NODULE. CORRELATION WITH CLINICAL AND RADIOGRAPHIC FINDINGS IS RECOMMENDED. ACCORDING TO THE [place] REPORTING SYSTEM FOR THYROID CYTOPATHOLOGY, THE RISK OF MALIGNANCY IN THE CATEGORY BENIGN-CATEGORY II IS 0-3%; THEREFORE RECOMMEND CONTINUED ULTRASOUND SURVEILLANCE WITH REPEAT FNA IF THE NODULE SIGNIFICANTLY INCREASES IN SIZE. Pathologist ICD10: 01 E04.1 Clinical history: 01 Right: Thyroid lobe measures 5.3 x 2.2 x 1.9 cm, and is homogeneous in echotexture. Left: Thyroid lobe measures 4.8 x 2.5 x 1.1 cm, and is homogenous in echotexture. Isthmus: 0.3 cm thick. Nodule number: 1 Location: Right mid Size: 1.5 x 1.4 x 1.2 cm. Composition: Solid Echogenicity: Hypoechoic/isoechoic Shape: wider than tall. Margins: Smooth Echogenic foci: None Total points: 4 ACR TI-RADS category: 4 IMPRESSION: Nodule in the right mid thyroid lobe which is TIRADS-4. Based on size, recommend FNA- Signed out by: Rajesh May MD, Pathologist NPI- [id number] Performed by: Julien Cuello, Special Service Officer ([facility]) Gross description: 01 30 CC, RED, CLEAR RECIEVED: IN CYTOLYT WITH 5 ALCOHOL FIXED AND 5 QUICK STAINED SLIDES ALSO 1 RNA VIAL WILL ON 03-13-2025.VO /VDU 08/11/2023 0544 Local FLAG LEGEND: L-Low Normal,H-High Normal,LL-Alert Low,HH-Alert High <-Panic Low,>-Panic High,A-Abnormal,AA-Critical Abnormal Performed at: 01 =Z [facility] [address] [place] [address], [place] [address] Rashid Horton MD, Performed at: 01 [facility] [address] [place] [address] [address], [place], [place] [id number] MD Rashid Horton MD Phone: [phone]
--- NOTE | 2023-08-10 08:03 | DI.US.S_ITS ---
PROCEDURE: US FINE NEEDLE ASPIRATION INDICATIONS: Nontoxic single thyroid nodule TECHNIQUE: The indications, alternatives, benefits, risks, and complications of the procedure were explained to the patient. Written informed consent was obtained and placed in the chart. The thyroid region was examined sonographically and a site was chosen for ultrasound guided percutaneous sampling. The skin was prepared and draped in the usual fashion, and anesthetized with 1% lidocaine infiltrated from the skin down to the thyroid gland. Multiple passes were then performed, with contents emptied into an appropriate pathology specimen container. A bandage was applied to the area of access at completion of the study. COMPARISON: None. FINDINGS: Location(s) of lesion(s) sampled: Right thyroid lobe [place]: 25 gauge hypodermic needles. Number of passes: 5 Medications: 1% lidocaine for local anaesthesia. Complications: None. IMPRESSION: Successful ultrasound-guided thyroid nodule fine needle aspiration, with cytology results pending. Please see chart below for management recommendations based on cytology results. [facility] ReportingRecommendationsNon-diagnostic* Repeat US-guided FNA, with on-site cytology evaluation if possible. * Repeated non-diagnostic nodules without high suspicion US features: close observation vs surgical consult. * Consider surgery if nodule has high suspicion US features, grows >20% in 2 dimensions on followup, or patient has clinical risk factors for malignancy. Benign* If nodule has high suspicion US features: repeat US and FNA within 12 months. * If nodule has low to intermediate suspicion US features: repeat US at 12-24 months. If nodule grows (20% increase in at least 2 dimensions, with minimal increase of 2 mm or >50% change in volume), or development of new suspicious US features, then repeat FNA or continue followup. * If nodule has very low suspicion US features: followup US at >24 months. Atypia of undetermined significance, follicular lesion of undetermined significanceRepeat FNA, molecular testing, followup US, or surgical consult.Follicular neoplasm, suspicious for follicular neoplasmSurgical consult; also consider molecular testing. Suspicious for malignancySurgical consult.MalignantSurgical consult. Dictated by: Jonathan Gerard M.D. on 08/10/2023 at 10:35 Approved by: Jonathan Gerard M.D. on 08/10/2023 at 10:36
== END ==
LOC: US 08:01
PROVIDERS: Family Provider Family Medicine; PCP Family Medicine; Referring Provider Physician Assistant; Visit Provider Physician Assistant
DX: E04.1 Nontoxic single thyroid nodule (principal)
CPT/HCPCS: 10005

== ENCOUNTER 2024-05-02 11:36 | Emergency (ER) | payer OTHER, SELFPAY ==
[2024-05-02] VITALS (14 sets, daily range): BP systolic 132–170; BP diastolic 63–90; PULSE 65–88; RESP 18; TEMP 37.1; O2SAT 96–100
[2024-05-02 12:36] LABS: Add Manual Diff / Slide Review NO; Basophils Absolute Auto 0 /uL (0-100); Basophils Percent Auto 0.6 % (0-2); Eosinophils Absolute Auto 0 /uL (0-450); Eosinophils Percent Auto 0.4 % (2-4); Hemoglobin 12.8 g/dL (12.0-16.0); Lymphocytes Absolute Auto 1500 /uL (1100-4500); Lymphocytes Percent Auto 17.8 % (25-40); Mean Corpuscular HGB Conc 33.8 % (30-36); Mean Corpuscular Hemoglobin 34.4 PG (26-34); Mean Corpuscular Volume 101.6 fL (80-100); Monocytes Absolute Auto 500 /uL (0-900); Monocytes Percent Auto 5.5 % (3-14); Neutrophils Absolute Auto 6400 /uL (1500-7000); Neutrophils Percent Auto 75.7 % (50-75); Platelet Count 218 X10^3/uL (150-400); Red Blood Cell Count 3.74 X10^6/uL (4.0-5.2); Red Cell Distribution Width 12.9 % (11.6-14.8); White Blood Cell Count 8.5 X10^3/uL (4.5-11.0)
--- NOTE | 2024-05-02 12:51 | EKG_ITS ---
[place] [id number] [place] [id number] Test Date: 2024-05-02 Pat Name: Mayi Chand Department: [facility] Room: Gender: Female [employer]: AMA : 1970 Requested By: Order Number: [id number] Reading MD: Jose Nieto MD Measurements Intervals Kirk Rate: 71 P: 64 CA: 186 QRS: 26 QRSD: 84 T: 46 QT: 396 QTc: 430 Interpretive Statements Normal sinus rhythm Possible Left atrial enlargement Septal infarct , age undetermined Electronically Signed On 05-03-2024 10:34:59 PST by Jose Nieto MD
[2024-05-02 12:52] LABS: Alanine Aminotransferase 27 IU/L (<35); Albumin 4.3 g/dL (3.5-5.0); Albumin Globulin Ratio 1.7 (1.0-2.8); Alkaline Phosphatase 58 U/L (38-126); Aspartate Aminotransferase 27 IU/L (14-36); BUN Creatinine Ratio 12.9 (6-22); Bilirubin Total 0.7 mg/dL (0.2-1.3); Blood Urea Nitrogen 8 mg/dL (7-17); Calcium 9.4 mg/dL (8.4-10.2); Carbon Dioxide 26 mmol/L (22-32); Chloride 108 mmol/L (98-107); Estimated Glomerular Filt Rate > 60 mL/min (>60); Globulin 2.5 g/dL (1.7-4.1); Glucose 103 mg/dL (70-100); HEMOLYSIS < 15 (0-50); Lipase 37 U/L (23-300); Potassium 3.7 mmol/L (3.4-5.1); Sodium 138 mmol/L (137-145); Total Protein 6.8 g/dL (6.3-8.2)
[2024-05-02 12:56] LABS: Urine Volume 10mL (spun)
[2024-05-02 13:03] LABS: Bacteria Urine None Seen; Culture Indicated Urine Specimen Cultured; RBC Urine 1-5/HPF (0-5/HPF); Squamous Epithelial Cell Urine 0-1 /HPF (0-5/HPF); WBC Urine 1-5/HPF (0-5/HPF)
--- NOTE | 2024-05-02 14:27 | ED.ABDPAIN ---
HPI - Abdominal Pain General Chief Complaint: Abdominal Pain Stated Complaint: hysterectomy 9wks ago, abd pain/discharge Time Seen by Provider: 05/02/24 14:26 Source: patient and family Mode of arrival: Ambulatory Limitations: no limitations History of Present Illness HPI narrative: 54-year-old history of mood disorder, hysterectomy in January of 2024 for uterine fibroid and irregular bleeding presents with complaint of lower abdominal pain since Thursday. Patient states she and her has been were sexually active for the 1st time Thursday night, she states during the 2nd half of the sexual activity started have discomfort. Afterwards when she got up to go to the she had some pinkish discharge. She has had persistent lower pelvic pain the suprapubic region up towards her belly button since then. States it goes a little bit more off to the right. Denies fevers. No nausea or vomiting. She does note she had muscles for dinner after that and can sometimes bother her stomach. She has had history of colitis in the past. She states she has had normal bowel movements. States she would another episode with discharge yesterday morning which she states was kind of brownish on her clothing. She states it did not smell like urine or looked like urine. She felt a gush of fluid when she got up. She has not had any more discharge that she was appreciated. She denies dysuria urgency or frequency. No new back or flank pain. No fevers. She states she was on Cymbalta and Lyrica for her home medications. She has not on any oral pain medication from her surgery. She states she has had hysterectomy and was talking to her OBGYN about getting ultrasound to evaluate for hernia. She states she was cleared at her 6 week visit for normal activities but they noted that her right upper incision has a little bit slower to heal. Allergies to bupropion. Does use tobacco, occasional alcohol uses marijuana no recreational drugs. Patient is accompanied by her . Related Data Home Medications Medication Instructions Recorded Confirmed methylcellulose (laxative) 500 mg 500 mg PO QDAY ##0 04/09/16 11/02/19 tablet (Citrucel) gabapentin 300 mg capsule 600 mg PO TID PRN 03/31/19 11/02/19 quetiapine 100 mg tablet (Seroquel) 100 mg PO BEDTIME 03/31/19 11/02/19 duloxetine 60 mg capsule,delayed 120 mg PO DAILY 10/03/19 11/02/19 release nitroglycerin 2 % transdermal 0.5 inch transdermal BID PRN 11/02/19 11/02/19 ointment Previous Rx's Medication Instructions Recorded valacyclovir 500 mg tablet 1,000 mg (2 x 500 mg) PO QDAY PRN 04/01/19 herpes #30 tabs diclofenac sodium 1 % topical gel 2 g topical QID arthritis pain 06/21/19 #100 grams lidocaine 5 % topical patch 1 patch topical DAILY low back 06/21/19 pain #30 ea tramadol 50 mg tablet 50 mg PO Q6H PRN pain #10 tabs 05/02/24 Allergies Allergy/AdvReac Type Severity Reaction Status Date / Time bupropion [From WELLBUTRIN] AdvReac Intermediate TACHYCARDIA, Verified 11/02/19 14:00 CONFUSION AND 'UNCOMFORTABLE FEELINGS' Review of Systems Review of Systems ROS Unobtainable: All systems reviewed & are unremarkable except as noted in HPI and below Patient History Medical History (Updated 05/02/24 @ 17:32 by Melanie Zabala DO) Foraminal stenosis of thoracic region Foraminal stenosis of lumbar region Herniated nucleus pulposus with myelopathy, thoracic Rosacea (~2012) Allergies (~1984) Chronic back pain (~1989) PMS (premenstrual syndrome) (~2017) Herpes (~1996) Hemorrhoid (~2002) Depression (~1992) Generalized anxiety disorder Left knee pain Mid back pain Immunizations up to date Chronic pain Anxiety and depression (~2016) Colitis (~2014) Surgical History (Updated 05/02/24 @ 17:32 by Melanie Zabala DO) Status post cervical spinal fusion Anesthesia History of knee surgery (~07/2016) History of neck surgery (~04/2016) History of appendectomy (~07/1992) S/P cervical spinal fusion (~10/2018) Family History Father Hypertension Mental health problem Mother Breast cancer Brother Bone cancer Grandfather Parkinson's disease Grandmother Parkinson's disease Grandfather Stroke Grandmother Diabetes mellitus Social History Smoking Status: Current every day smoker second hand exposure: Yes alcohol intake: current substance use type: does not use Smoking Status: Current every day smoker tobacco type: cigarettes alcohol intake frequency: a few times a month Substance Use Type: marijuana Exam Narrative Exam Narrative: GENERAL: Alert and oriented x three, female in mild distress HEENT: Head normocephalic, atraumatic, EOMI, pupils reactive, face symmetric, moist mucous membranes NECK: Supple, full range of motion CARDIOVASCULAR: Regular rate and rhythm without murmurs, rubs or gallops. RESPIRATORY: Breath sounds equal bilaterally, no wheezes rales or rhonchi. ABDOMEN: Soft, patient has generalized tenderness but greatest bilateral lower quadrants and suprapubically. Nondistended. Patient has 4 incisions right and left there proximally 0.5 cm in size there clean dry and intact without any signs of infection.. Normoactive bowel sounds all 4 quadrants. No guarding or rebound, rigidity, no mass : No CVA tenderness bilaterally. Female: external vaginal examl normal, no vaginal bleeding, no discharge, cervical cuff appears normal, there has no lacerations no dehiscence, there was no discharge. Normal speculum exam and patient states speculum exam is not painful, no abdominal tenderness on bimanual exam. EXTREMITIES: Normal range of motion, no clubbing or edema. Neurovascularly intac NEUROLOGICAL: Cranial nerves II through XII grossly intact. Moving all extremities SKIN: Warm, dry, no petechiae, no rashes or lesions. Initial Vital Signs Initial Vital Signs: Vital Signs Temperature 98.7 F 05/02/24 11:56 Pulse Rate 88 05/02/24 11:56 Respiratory Rate 18 05/02/24 11:56 Blood Pressure 170/90 H 05/02/24 11:56 Pulse Oximetry 100 05/02/24 11:56 Oxygen Delivery Method Room Air 05/02/24 11:56 Course Orders Ordered: ED Orders 05/02/24 12:01 EKG-12 Lead Stat 05/02/24 12:30 Complete Blood Count AUTO DIFF Stat Comprehensive Metabolic Panel Stat Lipase Stat 05/02/24 12:49 Urine Culture Stat Urine Microscopic Stat 05/02/24 14:46 CT abdomen pelvis w con Stat 05/02/24 17:25 Genital Culture Stat 05/02/24 17:34 Wet Prep Tric BV Loraine Stat Discontinued Medications Ketorolac Tromethamine (Ketorolac 30 Mg/Ml Vial) 15 mg IV NOW ONE Stop: 05/02/24 14:47 Last Admin: 05/02/24 14:59 Dose: 15 mg Documented By: NONA Morphine Sulfate (Morphine 4 Mg/Ml Inj) 4 mg IV NOW ONE Stop: 05/02/24 16:16 Last Admin: 05/02/24 16:28 Dose: 4 mg Documented By: NONA Ondansetron HCl (Ondansetron 4 Mg/2 Ml Inj) 4 mg IV NOW PRN PRN Reason: Nausea And Vomiting Ondansetron HCl (Ondansetron 4 Mg Odt) 4 mg PO NOW PRN PRN Reason: Nausea And Vomiting Vital Signs Vital signs: Vital Signs - 8 hr 05/02/24 11:56 05/02/24 12:54 05/02/24 12:55 Temperature 98.7 F Pulse Rate 88 77 Respiratory Rate 18 Blood Pressure 170/90 H 143/68 H Pulse Oximetry 100 99 Oxygen Delivery Method Room Air 05/02/24 12:55 05/02/24 13:00 05/02/24 13:00 Temperature Pulse Rate 75 74 Respiratory Rate Blood Pressure 144/63 H Pulse Oximetry 98 97 Oxygen Delivery Method 05/02/24 13:30 05/02/24 13:30 05/02/24 14:00 Temperature Pulse Rate 75 Respiratory Rate Blood Pressure 147/65 H 144/65 H Pulse Oximetry 98 Oxygen Delivery Method 05/02/24 14:00 05/02/24 14:30 05/02/24 14:30 Temperature Pulse Rate 77 75 Respiratory Rate Blood Pressure 148/64 H Pulse Oximetry 98 98 Oxygen Delivery Method 05/02/24 15:00 05/02/24 15:00 05/02/24 15:30 Temperature Pulse Rate 69 73 Respiratory Rate Blood Pressure 132/69 Pulse Oximetry 98 96 Oxygen Delivery Method 05/02/24 16:00 05/02/24 16:09 05/02/24 16:09 Temperature Pulse Rate 73 72 Respiratory Rate Blood Pressure 134/64 Pulse Oximetry 96 97 Oxygen Delivery Method 05/02/24 16:30 05/02/24 16:30 05/02/24 17:00 Temperature Pulse Rate 65 Respiratory Rate Blood Pressure 144/65 H 150/69 H Pulse Oximetry 98 Oxygen Delivery Method 05/02/24 17:00 05/02/24 17:30 Temperature Pulse Rate 76 Respiratory Rate Blood Pressure 158/69 H Pulse Oximetry 97 Oxygen Delivery Method MDM - Abdominal Pain Lab Data 05/02/24 12:30 05/02/24 12:30 Labs: Lab Results 05/02/24 05/02/24 Range/Units 12:30 12:49 WBC 8.5 (4.5-11.0) X10^3/uL RBC 3.74 L (4.0-5.2) X10^6/uL Hgb 12.8 (12.0-16.0) g/dL Hct 38.0 (36-46) % MCV 101.6 H (80-100) fL MCH 34.4 H (26-34) PG MCHC 33.8 (30-36) % RDW 12.9 (11.6-14.8) % Plt Count 218 (150-400) X10^3/uL Neut % (Auto) 75.7 H (50-75) % Lymph % (Auto) 17.8 L (25-40) % [place] % (Auto) 5.5 (3-14) % Eos % (Auto) 0.4 L (2-4) % Baso % (Auto) 0.6 (0-2) % Neut # (Auto) 6400 (0891-4559) /uL Lymph # (Auto) 1500 (3629-0717) /uL [place] # (Auto) 500 (0-900) /uL Eos # (Auto) 0 (0-450) /uL Baso # (Auto) 0 (0-100) /uL Sodium 138 (137-145) mmol/L Potassium 3.7 (3.4-5.1) mmol/L Chloride 108 H (98-107) mmol/L Carbon Dioxide 26 (22-32) mmol/L BUN 8 (7-17) mg/dL Creatinine 0.62 (0.52-1.04) mg/dL Estimated GFR > 60 (>60) mL/min BUN/Creatinine Ratio 12.9 (6-22) Glucose 103 H (70-100) mg/dL Calcium 9.4 (8.4-10.2) mg/dL Total Bilirubin 0.7 (0.2-1.3) mg/dL AST 27 (14-36) IU/L ALT 27 (<35) IU/L Alkaline Phosphatase 58 (38-126) U/L Total Protein 6.8 (6.3-8.2) g/dL Albumin 4.3 (3.5-5.0) g/dL Globulin 2.5 (1.7-4.1) g/dL Albumin/Globulin Ratio 1.7 (1.0-2.8) Lipase 37 (23-300) U/L Urine RBC 1-5/hpf (0-5/HPF) Urine WBC 1-5/hpf (0-5/HPF) Ur Squamous Epith Cells 0-1 /hpf (0-5/HPF) Urine Bacteria None seen (None) Ur Culture Indicated? Specimen cultured Vol Urine Centrifuged 10ml (spun) Point of care testing: Urine Dip Bedside Urine Glucose Negative Bedside Urine Bilirubin - Negative Bedside Urine Ketone - Negative Urine Specific [place] 1.005 Bedside Urine Occult Blood +/- Bedside Urine pH 6.0 Bedside Urine Protein +/- 15 Bedside Urine Urobilinogen - Negative Bedside Urine Nitrite - Negative Bedside Urine Leukocytes +/- 15 Esterase ECG Data Attestation: I personally reviewed and interpreted this ECG as follows: Interpretation: Sinus rhythm rate of 71 [place] 186 QRS 84 QTC of 430, no acute ST changes does have little bit of what appears to be motion artifact. MDM Narrative Medical decision making narrative: 54-year-old female with total hysterectomy on February 26, 2024 at [facility] was feeling well until sexual intercourse and started abdominal pain some pinkish discharge does have a history of colitis does note the right top suture has been a bit troublesome since her surgery. CBC shows normal white count of 8.5 hemoglobin of 12.8 platelets of 218 predominance of neutrophils macrocytosis present since 2016. Chemistries show a chloride of 108 sodium of 138 potassium 3.7 CO2 of 26 BUN 8 creatinine 0.62 glucose of 103 LFTs are negative. Point of care urine shows leukocyte esterase, protein blood, urine micro shows 1-5 RBCs 1-5 WBCs 1 squamous no bacteria specimen was sent for culture. Wet prep shows occasional WBCs no clue cells no yeast or trich. CT abdomen pelvis obtained shows hysterectomy without any acute abnormality. Patient had pelvic exam she was not uncomfortable for the exam she states the pain is actually higher up. Did grab a genital culture and wet mount but patient does not have any discharge and exam is overall reassuring. Patient appears uncomfortable but hemodynamically stable. We would like for her to follow up with black oxide coating equipment tender for rechecked in the next several days. Discussed return precautions. Paged black oxide coating equipment tender from [facility] in [place] but have not heard back prior to patient's discharge. Attempted x 2. Discharge Plan Departure Patient Disposition: Home Clinical Impression: Abdominal pain, S/P hysterectomy Instructions: DI for Abdominal Pain-Adult Activity Restrictions/Additional Instructions: Follow up with your black oxide coating equipment tender team, your labs and imaging today did not show any acute changes. I did send a genital culture but you did not have any discharge or changes on vaginal exam. Genital culture typically takes 48-72 hours result, if positive we would reach out to you to start antibiotics were appropriate treatment. Please call your black oxide coating equipment tender team tomorrow to set up follow up appointment. If you are having persistent pain without any other clear source maybe appropriate to follow up for colonoscopy as well. You can take acetaminophen up to a 1000 mg every 6 hours and/or ibuprofen up to 600 mg every 6 hours. If inadequate for pain you can take tramadol 1-2 tablets every 6 hours as needed for pain. This medication can make you sleepy do not drive, perform hazardous activities or make any major decisions while taking it. This medication will make you constipated please take a stool softener once to twice daily until stools are soft and regular. Prescription sent to [facility] in [place]. Please return for fevers new or worsening abdominal back or flank pain, persistent vomiting, black or bloody stools, painful urination, new bloody or increasing or new vaginal drainage or discharge or other new or concerning changes. Prescriptions: New tramadol 50 mg tablet 50 mg PO Q6H PRN (Reason: pain) Qty: 10 0RF No Action methylcellulose (laxative) [Citrucel] 500 MG tablet 500 mg PO QDAY Qty: 0 quetiapine [Seroquel] 100 mg tablet 100 mg PO BEDTIME gabapentin 300 mg capsule 600 mg PO TID PRN Rx Instructions: up to 3 times daily valacyclovir 500 mg tablet 1,000 mg PO QDAY PRN (Reason: herpes) Qty: 30 0RF Rx Instructions: take 1g daily for 5 days during outbreak duloxetine 60 mg capsule,delayed release(DR/EC) 120 mg PO DAILY diclofenac sodium 1 % gel 2 g TOP QID MDD 8 gm Qty: 100 5RF Rx Instructions: apply to low back lidocaine 5 % adhesive patch,medicated 1 patch TOP DAILY MDD 12 hours in a 24 hour period Qty: 30 5RF Rx Instructions: leave on most painful area for 12 hrs nitroglycerin 2 % ointment 0.5 inch Transdermal BID PRN Rx Instructions: apply a pea sized amount to hemorrhoid twice daily (okay to subst different size) Referrals: Skylar Cadena DO [Primary Care Provider] - Stand Alone Forms: Patient Portal/API/Survey
--- NOTE | 2024-05-02 14:46 | DI.CT.S_ITS ---
PROCEDURE: CT ABDOMEN PELVIS W CON INDICATIONS: s/p hyst sept, 1st time sex active, lower abd pain since TECHNIQUE: After the administration of intravenous contrast, axial sections acquired from the lung bases to the pubic symphysis. Coronal and sagittal reformats were performed. For radiation dose reduction, the following was used: automated exposure control, adjustment of mA and/or kV according to patient size. COMPARISON: None. FINDINGS: Image quality: Diagnostic. Lower Chest: No significant findings. ABDOMEN: Liver: No solid mass. Gallbladder: No radiopaque gallstones or wall thickening. Biliary ducts: No biliary dilation. Pancreas: No ductal dilation. Spleen: Size is within normal limits. Adrenal Glands: No adrenal nodules. Kidneys and Ureters: No hydronephrosis. No solid mass. No complex renal cystic lesion which requires follow up. Stomach and Bowel: Normal colonic caliber, without significant wall thickening. No significant diverticular disease. Peritoneum: No abnormal intraperitoneal fluid. No free air. Ventral Wall: No significant ventral hernia. Abdominal Nodes: No retroperitoneal or mesenteric adenopathy by size criteria. Vessels: Aorta and inferior vena cava are normal in size. PELVIS: Pelvic Organs: Hysterectomy. Bladder: No bladder wall thickening, accounting for underdistention. Pelvic Nodes: No enlarged lymph nodes. Miscellaneous: No inguinal hernias are seen. Bones: No aggressive osseous abnormality. IMPRESSION: Hysterectomy without acute abnormality. Dictated by: Jonathan Gerard M.D. on 05/02/2024 at 15:41 Approved by: Jonathan Gerard M.D. on 05/02/2024 at 15:44
[2024-05-02] MEDS: KETOROLAC 30 MG/ML VIAL 15 MG IV (14:59)
[2024-05-02] MEDS: MORPHINE 4 MG/ML INJ IV (16:28)
== END 2024-05-02 17:53 | disposition home or self-care (01) ==
PROVIDERS: Emergency Provider Emergency Medicine; Family Provider Family Medicine; PCP Family Medicine
DX: R10.30 Lower abdominal pain, unspecified (principal); Z90.710 Acquired absence of both cervix and uterus; R79.89 Other specified abnormal findings of blood chemistry
CPT/HCPCS: 74177; 80053; 81003; 81015; 83690; 85025; 87070; 87086; 87205; 87210; 93005; 93010; 96374; 96375; 99284; J1885; J2270; Q9967